=== PATIENT | female | born 1945 | race Caucasian/White ===

== ENCOUNTER 2020-03-13 10:51 | Outpatient (CLI) | payer MEDICARE, OTHER, SELFPAY ==
[2020-03-13 11:00] VITALS: BP 110/76; PULSE 88; RESP 16; TEMP 36.6; O2SAT 98
[2020-03-13] MEDS: denosumab 60 mg SDV SUBCUT (11:26)
[2020-03-13 11:53] VITALS: BP 124/86; PULSE 82; RESP 16; TEMP 36.4; O2SAT 97
== END 2020-03-13 10:52 | disposition home or self-care (01) ==
LOC: RHEOACUTE 10:53
PROVIDERS: Visit Provider Internal Medicine Rheumatology
DX: M81.0 Age-related osteoporosis without current pathological fracture (principal)
CPT/HCPCS: 96372; J0897

== ENCOUNTER 2020-06-04 08:11 | Outpatient (CLI) | payer MEDICARE, OTHER, SELFPAY ==
--- NOTE | 2020-06-04 08:25 | MM_ITS ---
WS: [id number] BILATERAL DIGITAL SCREENING MAMMOGRAPHY WITH CAD CLINICAL INFORMATION: SCREENING HISTORY: Screening mammogram. No current complaints. COMPARISON: TECHNIQUE: Bilateral CC and MLO views. FINDINGS: The breasts are composed of heterogeneous fibroglandular density tissue, which can limit the detectio n of small underlying mass lesions. No suspicious mass, asymmetry, calcifications, or architectural d istortion. No evidence of malignancy. A few punctate calcifications. MM/[place] [id number] IMPRESSION: BI-RADS: 2-Benign FOLLOW UP: 1 Year Follow-up Recommend return to annual screening mammography.
== END 2020-06-04 08:12 | disposition home or self-care (01) ==
PROVIDERS: PCP Family Medicine; Visit Provider Family Medicine
DX: Z12.31 Encounter for screening mammogram for malignant neoplasm of breast (principal)
CPT/HCPCS: 77067

== ENCOUNTER 2020-10-12 10:20 | Outpatient (CLI) | payer MEDICARE, OTHER, SELFPAY ==
[2020-10-12] MEDS: denosumab 60 mg SDV SUBCUT (11:42)
== END 2020-10-12 10:21 | disposition home or self-care (01) ==
PROVIDERS: PCP Family Medicine; Visit Provider Family Medicine
DX: M81.0 Age-related osteoporosis without current pathological fracture (principal)
CPT/HCPCS: 96372; J0897

== ENCOUNTER 2021-04-16 12:40 | Outpatient (CLI) | payer MEDICARE, OTHER, SELFPAY ==
[2021-04-16 13:02] VITALS: BP 130/65; PULSE 94; RESP 18; TEMP 36.5; O2SAT 97
[2021-04-16] MEDS: denosumab 60 mg SDV SUBCUT (13:21)
== END 2021-04-16 12:41 | disposition home or self-care (01) ==
LOC: ONCMED 12:46
PROVIDERS: PCP Family Medicine; Referring Provider Family Medicine; Visit Provider Family Medicine
DX: M81.0 Age-related osteoporosis without current pathological fracture (principal); Z79.899 Other long term (current) drug therapy
CPT/HCPCS: 96372; J0897

== ENCOUNTER 2021-06-04 14:54 | Outpatient (CLI) | payer MEDICARE, OTHER, SELFPAY ==
--- NOTE | 2021-06-04 15:00 | XR_ITS ---
WS: [id number] SCREENING DEXA SCAN [employer] CLINICAL INFORMATION: OSTEOPOROSIS COMPARISON: FINDINGS: The L1-L4 bone mineral density measures 0.919 g/cm2. This corresponds to a T score score of -2.2 and Z score of -1.2. Left femoral neck bone mineral density measures 0.781 g/cm2. This corresponds to a T score of -1.8 an d Z score of -0.7. Right femoral neck bone mineral density measures 0.823 g/cm2. This corresponds to a T score -1.5of an d Z score of -0.4. Mean femoral neck bone mineral density measures 0.802 g/cm2. This corresponds to a T score of -1.6 an d Z score of -0.5. XR/XR DEXA axial skeleton* [id number] IMPRESSION: Osteopenia lumbar spine and femoral necks. Patient's FRAX calculated 10 year probability for major osteoporotic fracture i s 20.9 % and osteoporotic hip fracture is 5.2%.
== END 2021-06-04 14:55 | disposition home or self-care (01) ==
PROVIDERS: PCP Family Medicine; Visit Provider Family Medicine
DX: M81.0 Age-related osteoporosis without current pathological fracture (principal); M85.89 Other specified disorders of bone density and structure, multiple sites
CPT/HCPCS: 77080

== ENCOUNTER 2021-10-22 12:52 | Outpatient (CLI) | payer MEDICARE, OTHER, SELFPAY ==
[2021-10-22 13:05] VITALS: BP 135/74; PULSE 78; RESP 18; TEMP 36.6; O2SAT 98
[2021-10-22] MEDS: denosumab 60 mg SDV SUBCUT (13:15)
[2021-10-22 13:23] VITALS: BP 109/74; PULSE 78; RESP 18; TEMP 36.9; O2SAT 95
== END 2021-10-22 12:53 | disposition home or self-care (01) ==
PROVIDERS: PCP Family Medicine; Visit Provider Family Medicine
DX: M81.0 Age-related osteoporosis without current pathological fracture (principal)
CPT/HCPCS: 96372; J0897

== ENCOUNTER 2022-04-22 10:50 | Outpatient (CLI) | payer MEDICARE, OTHER, SELFPAY ==
[2022-04-22 11:00] VITALS: BP 130/80; PULSE 94; RESP 18; TEMP 36.7; O2SAT 95
[2022-04-22] MEDS: denosumab 60 mg SDV SUBCUT (11:06)
[2022-04-22 11:16] VITALS: BP 123/82; PULSE 74; RESP 18; TEMP 36.6; O2SAT 97
== END 2022-04-22 10:51 | disposition home or self-care (01) ==
PROVIDERS: PCP Family Medicine; Visit Provider Family Medicine
DX: M81.0 Age-related osteoporosis without current pathological fracture (principal)
CPT/HCPCS: 96372; J0897

== ENCOUNTER 2022-11-11 09:56 | Oncology outpatient (recurring) (ONCR) | payer MEDICARE, OTHER, SELFPAY ==
[2022-11-11] MEDS: denosumab 60 mg SDV SUBCUT (10:37)
== END 2022-12-05 23:59 | disposition home or self-care (01) ==
LOC: ONCMED 09:57
PROVIDERS: PCP Family Medicine; Visit Provider Family Medicine
DX: M81.0 Age-related osteoporosis without current pathological fracture (principal)
CPT/HCPCS: 96372; J0897

== ENCOUNTER 2022-12-19 13:57 | Outpatient (CLI) | payer MEDICARE, OTHER, SELFPAY ==
--- NOTE | 2022-12-19 14:13 | MM_ITS ---
WS: [id number] BILATERAL 3D TOMOSYNTHESIS DIGITAL SCREENING MAMMOGRAPHY WITH CAD CLINICAL INFORMATION: SCREEN HISTORY: Screening mammogram. No current complaints. COMPARISON: June 04, 2020 TECHNIQUE: Bilateral CC and MLO views. FINDINGS: The breasts are composed of heterogeneous fibroglandular density tissue, which can limit the detectio n of small underlying mass lesions. No suspicious mass, asymmetry, calcifications, or architectural d istortion. No evidence of malignancy. Stable incidental punctate clustered calcifications LEFT breast . Eggshell calcification LEFT breast. MM/[place] [id number] IMPRESSION: BI-RADS: 2-Benign FOLLOW UP: 1 Year Follow-up Recommend return to annual screening mammography.
== END 2022-12-19 13:58 | disposition home or self-care (01) ==
LOC: RAD 14:01
PROVIDERS: PCP Family Medicine; Visit Provider Family Medicine
DX: Z12.31 Encounter for screening mammogram for malignant neoplasm of breast (principal)
CPT/HCPCS: 77063; 77067

== ENCOUNTER 2023-04-24 14:06 | Outpatient (CLI) | payer MEDICARE, OTHER, SELFPAY ==
--- NOTE | 2023-04-24 14:10 | XR_ITS ---
WS: [id number] SCREENING DEXA SCAN [email or web address] CLINICAL INFORMATION: OSTEOPOROSIS COMPARISON: 2020 FINDINGS: The L1-L4 bone mineral density measures 0.975 g/cm2. This corresponds to a T score score of -1.7 and Z score of -0.7. Left femoral neck bone mineral density measures 0.783 g/cm2. This corresponds to a T score of -1.8 an d Z score of -0.5. Right femoral neck bone mineral density measures 0.838 g/cm2. This corresponds to a T score -1.3of an d Z score of -0.1. Mean femoral neck bone mineral density measures 0.811 g/cm2. This corresponds to a T score of -1.6 an d Z score of -0.3. IMPRESSION: Osteopenia lumbar spine. Osteopenia femoral necks. Patient's FRAX calculated 10 year probability for major osteoporotic fracture is 19.8% and osteoporot ic hip fracture is 4.9%. Bone mineral density lumbar spine increased 6.1% since 2020 Bone mineral density in the femoral necks increased 1.1% since 2020
== END 2023-04-24 14:07 | disposition home or self-care (01) ==
LOC: RAD 14:08
PROVIDERS: PCP Family Medicine; Visit Provider Family Medicine
DX: Z13.820 Encounter for screening for osteoporosis (principal); M81.0 Age-related osteoporosis without current pathological fracture; M85.89 Other specified disorders of bone density and structure, multiple sites
CPT/HCPCS: 77080

== ENCOUNTER 2023-05-25 07:54 | Oncology outpatient (recurring) (ONCR) | payer MEDICARE, OTHER, SELFPAY ==
[2023-05-25] MEDS: denosumab 60 mg SDV SUBCUT (08:12)
[2023-05-25 08:14] VITALS: BP 132/85; PULSE 91; RESP 16; TEMP 36.2; O2SAT 95
== END 2023-06-06 23:59 | disposition home or self-care (01) ==
LOC: ONCMED 07:54
PROVIDERS: PCP Family Medicine; Visit Provider Family Medicine
DX: M81.0 Age-related osteoporosis without current pathological fracture (principal)
CPT/HCPCS: 96372; J0897

== ENCOUNTER 2023-11-03 09:43 | Outpatient (CLI) | payer MEDICARE, OTHER, SELFPAY ==
--- NOTE | 2023-11-03 09:49 | US_ITS ---
WS: [id number] RIGHT UPPER QUADRANT ULTRASOUND HISTORY: ABNORMAL TEST RESULTS COMPARISON: None available. Liver: 17.1 cm in length. Normal size liver. Cyst in the LEFT lobe measures 3.1 x 3.6 x 2.3 cm. There are few additional smaller scattered cysts throughout the liver. No mass. Portal Vein: Normal hepatopetal flow with monophasic waveform. Gallbladder: Normally distended gallbladder with no stones or wall thickening. CBD: 0.4 cm Pancreas: Normal size and echogenicity. Right kidney: 10.0 cm in length. Normal size and echogenicity. No hydronephrosis or mass. Aorta and IVC: Unremarkable abdominal aorta and IVC. No ascites. IMPRESSION: 1. Normal gallbladder. 2. Several benign simple hepatic cysts. No solid mass or intrahepatic dilatation.
== END 2023-11-03 09:44 | disposition home or self-care (01) ==
LOC: RAD 09:44
PROVIDERS: PCP Family Medicine; Visit Provider Family Medicine
DX: R94.5 Abnormal results of liver function studies (principal); K76.89 Other specified diseases of liver
CPT/HCPCS: 76705

== ENCOUNTER 2023-11-26 09:20 | Oncology outpatient (recurring) (ONCR) | payer MEDICARE, OTHER, SELFPAY ==
[2023-11-26] MEDS: denosumab 60 mg SDV SUBCUT ×2 (10:02→10:17)
[2023-11-26 10:07] VITALS: BP 126/90; PULSE 92; RESP 18; TEMP 36.6; O2SAT 98
== END 2023-12-06 23:59 | disposition home or self-care (01) ==
LOC: ONCMED 09:21
PROVIDERS: PCP Family Medicine; Visit Provider Family Medicine
DX: M81.0 Age-related osteoporosis without current pathological fracture (principal); Z79.899 Other long term (current) drug therapy
CPT/HCPCS: 96372; 96401; J0897

== ENCOUNTER 2023-12-28 08:36 | Outpatient (CLI) | payer MEDICARE, OTHER, SELFPAY ==
--- NOTE | 2023-12-28 08:40 | MM_ITS ---
WS: [id number] BILATERAL SCREENING DIGITAL TOMOSYNTHESIS MAMMOGRAM WITH CAD HISTORY: SCREENING COMPARISON: 12/19/2022, 06/04/2020 Bilateral CC and MLO views with tomosynthesis and synthetic mammography submitted. Computer aided det ection analyzed. Breast composition: There are scattered areas of fibroglandular density. No suspicious masses, microc alcifications or architectural distortion. Benign calcifications LEFT breast. No mass. IMPRESSION: MM/[place] [id number] BI-RADS: 2-Benign FOLLOW UP: 1 Year Follow-up
== END 2023-12-28 08:37 | disposition home or self-care (01) ==
LOC: RAD 08:36
PROVIDERS: PCP Family Medicine; Visit Provider Family Medicine
DX: Z12.31 Encounter for screening mammogram for malignant neoplasm of breast (principal)
CPT/HCPCS: 77063; 77067

== ENCOUNTER → 2024-04-25 09:11 | Outpatient (BNVA) | payer MEDICARE, OTHER, SELFPAY | PROVIDERS: PCP Family Medicine; Visit Provider Specialist | DX: Z87.81 Personal history of (healed) traumatic fracture (principal); M19.041 Primary osteoarthritis, right hand; M18.11 Unilateral primary osteoarthritis of first carpometacarpal joint, right hand | CPT/HCPCS: 73110 ==

== ENCOUNTER 2024-05-10 07:41 | Oncology outpatient (recurring) (ONCR) | payer MEDICARE, OTHER, SELFPAY ==
--- NOTE | 2024-05-10 07:45 | CTR_ITS ---
PROCEDURE INFORMATION: Exam: CT Right Upper Extremity With Contrast, Wrist Exam date and time: 05/10/2024 8:12 AM Age: 78 years old Clinical indication: Condition or disease; Other: Ocalized swelling, mass and lump, right upper limb; Patient HX: Ganglion cyst RT wrist on palm side. PT FX wrist 12 years ago and states cyst has been there for 10-11 years. Over the last 6 months PT has started having pain with extension in that wrist. ; Additional info: R22.31 - localized swelling, mass and lump, right upper limb TECHNIQUE: Imaging protocol: Computed tomography of the right upper extremity with contrast. Exam focused on the wrist. Radiation optimization: All CT scans at this facility use at least one of these dose optimization techniques: automated exposure control; mA and/or kV adjustment per patient size (includes targeted exams where dose is matched to clinical indication); or iterative reconstruction. Contrast material: OMNI 350; Contrast volume: 100 ml; Contrast route: INTRAVENOUS (IV); COMPARISON: CR XR wrist RT min 3V* [id number] 04/25/2024 9:13 AM RADIATION DOSE METRICS: Total DLP (mGy-cm): 188.77 FINDINGS: Bones/joints: No acutely displaced fractures. No joint dislocation. 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 Moderate osteoarthritis of the 1st carpometacarpal joint. No aggressive osseous lesions. Soft tissues: There is no significant soft tissue swelling. No enhancing soft tissue masses or cystic lesions. No soft tissue edema. CT/CT wrist RT w con [id number] IMPRESSION: 1. No acute skeletal pathology. 2. No soft tissue findings to explain the patient's symptoms. Specifically, no discrete ganglion cysts or cystic lesions. COMMENTS: Consider correlation with wrist MRI.
[2024-05-10 08:12] LABS: Blood Urea Nitrogen 11 mg/dL (8-23)
[2024-05-10] MEDS: iohexol 350 mg/mL 500 mL Btl (per mL) IV (08:24)
== END 2024-06-06 23:59 | disposition home or self-care (01) ==
LOC: RAD 07:41 → ONCMED 05-13 07:17
PROVIDERS: Radiology Neuroradiology; PCP Family Medicine; Visit Provider Specialist
DX: R22.31 Localized swelling, mass and lump, right upper limb (principal); M19.031 Primary osteoarthritis, right wrist; M18.9 Osteoarthritis of first carpometacarpal joint, unspecified
CPT/HCPCS: 73201; 82565; 84520

== ENCOUNTER 2024-06-16 10:22 | Oncology outpatient (recurring) (ONCR) | payer MEDICARE, OTHER, SELFPAY ==
[2024-06-16] MEDS: denosumab 60 mg SDV SUBCUT (10:58)
== END 2024-07-07 23:59 | disposition home or self-care (01) ==
PROVIDERS: PCP Family Medicine; Visit Provider Specialist
DX: M81.0 Age-related osteoporosis without current pathological fracture (principal); Z79.899 Other long term (current) drug therapy
CPT/HCPCS: 96372; J0897

== ENCOUNTER 2024-12-29 10:55 | Outpatient (CLI) | payer MEDICARE, OTHER, SELFPAY ==
--- NOTE | 2024-12-29 11:01 | MM_ITS ---
WS: [id number] BILATERAL SCREENING DIGITAL TOMOSYNTHESIS MAMMOGRAM WITH CAD HISTORY: SCREENING COMPARISON: 12/28/2023, 12/19/2022 Bilateral CC and MLO views with tomosynthesis and synthetic mammography submitted. Computer aided detection analyzed. Breast composition: The breasts are heterogeneously dense, which may obscure small masses. No suspicious masses, microcalcifications or architectural distortion. Calcifications LEFT breast. MM/MM scr BI tomosynthesis [id number] IMPRESSION: BI-RADS: 2 - Benign. FOLLOW UP: 1 Year Follow-up
== END 2024-12-29 10:56 | disposition home or self-care (01) ==
LOC: RAD 10:57
PROVIDERS: PCP Family Medicine; Visit Provider Family Medicine
DX: Z12.31 Encounter for screening mammogram for malignant neoplasm of breast (principal); R92.333 Mammographic heterogeneous density, bilateral breasts; R92.1 Mammographic calcification found on diagnostic imaging of breast
CPT/HCPCS: 77063; 77067

== ENCOUNTER 2025-01-11 15:21 | Oncology outpatient (recurring) (ONCR) | payer MEDICARE, OTHER, SELFPAY ==
[2025-01-11] MEDS: denosumab 60 mg SDV SUBCUT (16:13)
== END 2025-02-04 23:59 | disposition home or self-care (01) ==
PROVIDERS: PCP Family Medicine; Visit Provider Specialist
DX: M81.0 Age-related osteoporosis without current pathological fracture (principal); Z79.899 Other long term (current) drug therapy
CPT/HCPCS: 96401; J0897

== ENCOUNTER 2025-07-10 13:33 | Oncology outpatient (recurring) (ONCR) | payer MEDICARE, OTHER, SELFPAY ==
[2025-07-10] MEDS: denosumab 60 mg SDV (Infusion Clinic Only) SUBCUT (13:59)
== END 2025-08-06 23:59 | disposition home or self-care (01) ==
PROVIDERS: PCP Family Medicine; Visit Provider Specialist
DX: M81.0 Age-related osteoporosis without current pathological fracture (principal); Z79.899 Other long term (current) drug therapy
CPT/HCPCS: 96372; J0897